=== PATIENT | male | born 1980 | race Caucasian/White ===

== ENCOUNTER 2016-05-13 16:10 | Emergency (ER) | payer SELFPAY ==
[~2016-05-13] VITALS: Ht 182.9 cm; Wt 103.6 kg
[~2016-05-13 16:10] MED LIST: GABAPENTIN300 MG PO; MOBIC15 MG PO
[2016-05-13 16:56] LABS: HEMATOCRIT 46.9 % (38.0-50.0); MCH 30.3 PG (29.0-34.0); MCHC 33.7 G/DL (30.0-36.0); MCV 89.8 FL (86-99); MEAN PLAT.VOLUME 9.3 uM^3 (9.0-12.4); PLATELET COUNT 346 K/uL (156-360); RBC DIS.WIDTH-CV 12.5 % (11.8-14.6); RBC DIS.WIDTH-SD 40.6 % (39-53); RED BLOOD COUNT 5.22 M/uL (4.00-5.50); WHITE BLOOD COUNT 8.1 K/uL (4.1-10.2)
[2016-05-13 17:05] LABS: CHLORIDE 108 mEq/L (99-109); POTASSIUM 3.8 mEq/L (3.7-5.4); SODIUM 140 mEq/L (136-147)
[2016-05-13 17:06] LABS: GLUCOSE 160 mg/dL (70-99)
[2016-05-13 17:08] LABS: ANION GAP 11 MEQ/L (2-14)
[2016-05-13 17:10] LABS: GFR ESTIMATE (CALCULATED) > 59 mL/min/
[2016-05-13 17:11] LABS: UREA NITROGEN (BUN) 8 mg/dL (9-23)
[2016-05-13 18:00] LABS: TOTAL BILIRUBIN 1.1 mg/dL (0.0-1.0)
[2016-05-13 18:01] LABS: ALKALINE PHOSPHATASE 62 IU/L (3-129)
[2016-05-13] MEDS ORDERED: OMEPRAZOLE40 M1 PO (18:01)
[2016-05-13] MEDS ORDERED: ZOFRAN4 MG PO (18:01)
[2016-05-13] MEDS ORDERED: CARAFATE1 GM PO (18:01)
[2016-05-13 18:03] LABS: DIRECT BILIRUBIN 0.4 mg/dL (0.0-0.3)
[2016-05-13 18:04] LABS: LIPASE 35 U/L (1.0-51.0)
[2016-05-13 18:46] VITALS: BP 123/82
== END 2016-05-13 18:50 | disposition home or self-care (01) ==
LOC: EME 16:10
PROVIDERS: Physician Assistant
DX: K22.6 Gastro-esophageal laceration-hemorrhage syndrome (principal); G43.909 Migraine, unspecified, not intractable, without status migrainosus; R10.13 Epigastric pain; F17.200 Nicotine dependence, unspecified, uncomplicated; Z82.49 Family history of ischemic heart disease and other diseases of the circulatory system
CPT/HCPCS: 80048; 80076; 83690; 85027; 99281; 99284